=== PATIENT | male | born 1970 | race Caucasian/White ===

== ENCOUNTER 2019-07-30 10:24 | Emergency (ER) | payer MEDICARE, MEDICAID ==
[2019-07-30 10:33] VITALS: BP 142/75
[2019-07-30] MEDS ORDERED: Tetracaine 0.5% OPTH.SOL 4 ML* 1 DROP BTL ONE (10:55)
[2019-07-30] MEDS ORDERED: Fluorescein Sodium TOPICAL* 1 MG TEST STRIP OPHTHALMIC ONE (10:56)
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
[2019-07-30] MEDS ORDERED: Tetan/Diph/Pertus SYR(Tdap)* 0.5 ML SYR(BOOSTRIX) use SYR IM ONE (11:11)
== END 2019-07-30 11:23 | disposition home or self-care (01) ==
LOC: UCEAST 10:24
DX: S05.02XA Injury of conjunctiva and corneal abrasion without foreign body, left eye, initial encounter (principal); W22.8XXA Striking against or struck by other objects, initial encounter; Y92.9 Unspecified place or not applicable; F17.210 Nicotine dependence, cigarettes, uncomplicated; Z23 Encounter for immunization
CPT/HCPCS: 90471; 90715; 99212; A9270-GY; G0463

== ENCOUNTER 2020-02-28 16:28 | Emergency (ER) | payer MEDICARE, MEDICAID ==
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
[2020-02-28 17:11] VITALS: BP 115/78
== END 2020-02-28 17:10 | disposition home or self-care (01) ==
LOC: ED 16:28
DX: S50.852A Superficial foreign body of left forearm, initial encounter (principal); W34.010A Accidental discharge of airgun, initial encounter; Y92.9 Unspecified place or not applicable; F17.210 Nicotine dependence, cigarettes, uncomplicated
CPT/HCPCS: 99282